=== PATIENT | female | born 1995 | race African-American/Black ===

== ENCOUNTER 2018-01-31 12:25 | Emergency (ER) | payer MEDICAID ==
[~2018-01-31] VITALS: Ht 172.7 cm; Wt 98.0 kg
[2018-01-31] MEDS ORDERED: SODIUM CHLORIDE 0.9% 1,000 ML IV ONE (13:28)
[2018-01-31 14:34] LABS: BASOPHILS % 0.7 % (0.0-2.0); EOSINOPHILS % 1.1 % (0.0-5.0); HEMATOCRIT. 37.3 % (36.0-48.0); HEMOGLOBIN. 12.2 g/dL (12.0-16.0); LYMPHOCYTES % 23.1 % (20.0-50.0); MEAN CORPUSCULAR HEMOGLOBIN 29.8 pg (28.0-32.0); MEAN PLATELET VOLUME 8.3 fl (7.4-10.4); MONOCYTES % 8.2 % (2.0-8.0); NEUTROPHILS % 66.9 % (40.0-76.0); PLATELET 207 x1000/uL (130-400); RED CELL DISTRIBUTION WIDTH 13.8 % (11.6-14.6)
[2018-01-31 14:37] LABS: CHLORIDE 108 mEq/L (98-107)
[2018-01-31 14:39] LABS: PARTIAL THROMBOPLASTIN TIME 28.9 sec (23.4-31.0); PROTHROMBIN TIME 10.3 sec (9.1-11.1)
[2018-01-31 14:48] LABS: B-HCG QUANTITATIVE < 1 mIU/mL (<3)
[2018-01-31 15:04] LABS: KETONES URINE NEGATIVE (NEGATIVE); LEUKOCYTE ESTERASE URINE 1+ (NEGATIVE); NITRITE URINE NEGATIVE (NEGATIVE); OCCULT BLOOD URINE 3+ (NEGATIVE); PH URINE 7.5 (4.5-8.0); PROTEIN URINE TRACE (NEGATIVE); SPECIFIC GRAVITY URINE 1.025 (1.005-1.030); UROBILINOGEN URINE 0.2 E.U./dL (0.2-1.0)
[2018-01-31 15:12] LABS: CLARITY URINE CLOUDY (CLEAR); COLOR URINE BLOODY (YELLOW)
[2018-01-31 15:15] LABS: *AMPHETAMINES SCREEN URINE NEGATIVE (NEGATIVE); *BARBITURATES SCREEN URINE NEGATIVE (NEGATIVE); *BENZODIAZEPINES SCREEN URINE NEGATIVE (NEGATIVE); *COCAINE SCREEN URINE NEGATIVE (NEGATIVE); PHENCYCLIDINE URINE SCREEN NEGATIVE (NEGATIVE)
[2018-01-31 15:16] LABS: METHADONE URINE SCREEN NEGATIVE (NEGATIVE); OPIATES URINE SCREEN NEGATIVE (NEGATIVE)
[2018-01-31 15:25] LABS: CANNABINOID URINE SCREEN PRESUMTIVE POSITIVE (NEGATIVE)
[2018-01-31] MEDS ORDERED: CEFAZOLIN 1000MG PREMIX 50 ML IV ONE (16:15)
[2018-01-31] MEDS ORDERED: KETOROLAC 30MG/ML VIAL IV ONE (17:30)
[2018-01-31 18:11] VITALS: BP 120/71
== END 2018-01-31 18:13 | disposition home or self-care (01) ==
LOC: ER 12:25
DX: N39.0 Urinary tract infection, site not specified (principal); J45.909 Unspecified asthma, uncomplicated; F12.10 Cannabis abuse, uncomplicated; F17.200 Nicotine dependence, unspecified, uncomplicated
CPT/HCPCS: 36415; 76830; 76856; 80048; 80305; 81003; 81025; 84702; 85025; 85610; 85730; 86850; 86900; 86901; 87077; 87086; 87186; 96361; 96365; 96375; 99285; J0690; J1885; J7030

== ENCOUNTER 2018-06-30 14:01 | Emergency (ER) | payer MEDICAID ==
[~2018-06-30] VITALS: Ht 175.3 cm; Wt 100.0 kg
[2018-06-30] MEDS ORDERED: SODIUM CHLORIDE 0.9% 1,000 ML IV ONE (22:41)
[2018-06-30 23:21] LABS: CLARITY URINE TURBID (CLEAR); KETONES URINE 2+ (NEGATIVE); LEUKOCYTE ESTERASE URINE 3+ (NEGATIVE); NITRITE URINE POSITIVE (NEGATIVE); OCCULT BLOOD URINE 3+ (NEGATIVE); PROTEIN URINE 3+ (NEGATIVE); SPECIFIC GRAVITY URINE 1.034 (1.005-1.030)
[2018-06-30 23:22] LABS: COLOR URINE BLOODY (YELLOW)
[2018-06-30 23:45] LABS: BASOPHILS % 0.6 % (0.0-2.0); EOSINOPHILS % 1.8 % (0.0-5.0); HEMATOCRIT. 34.9 % (36.0-48.0); HEMOGLOBIN. 11.4 g/dL (12.0-16.0); LYMPHOCYTES % 35.4 % (20.0-50.0); MEAN CORPUSCULAR VOLUME 88.8 fL (81.0-99.0); MEAN PLATELET VOLUME 8.2 fl (7.4-10.4); MONOCYTES % 10.9 % (2.0-8.0); NEUTROPHILS % 51.3 % (40.0-76.0); PLATELET 254 x1000/uL (130-400); RED BLOOD CELL COUNT 3.93 mill/uL (4.2-5.4); RED CELL DISTRIBUTION WIDTH 13.5 % (11.6-14.6)
[2018-06-30 23:54] LABS: CHLORIDE 108 mEq/L (98-107)
[2018-07-01] MEDS ORDERED: MORPHINE SULFATE 4 MG/ML CPJ (NOT FOR IM USE) IV ONE (00:45)
[2018-07-01 01:02] VITALS: BP 112/55
== END 2018-07-01 01:46 | disposition home or self-care (01) ==
LOC: ER 16:21
DX: D25.0 Submucous leiomyoma of uterus (principal); N93.8 Other specified abnormal uterine and vaginal bleeding; N39.0 Urinary tract infection, site not specified; J45.909 Unspecified asthma, uncomplicated
CPT/HCPCS: 36415; 76705; 76830; 76856; 80053; 81003; 81025; 85025; 86850; 86900; 86901; 96361; 96374; 99284; J2270; J7030; Z7610

== ENCOUNTER 2019-04-12 13:17 | Emergency (ER) | payer MEDICAID, OTHER ==
[~2019-04-12] VITALS: Ht 177.8 cm; Wt 99.0 kg
[2019-04-12 13:38] VITALS: BP 119/67
== END 2019-04-12 16:00 | disposition left against medical advice (07) ==
LOC: ER 13:17
DX: Z53.21 Procedure and treatment not carried out due to patient leaving prior to being seen by health care provider (principal); F17.200 Nicotine dependence, unspecified, uncomplicated

== ENCOUNTER 2021-04-17 21:17 | Emergency (ER) | payer OTHER ==
[~2021-04-17] VITALS: Ht 175.3 cm; Wt 99.0 kg
[2021-04-17] MEDS ORDERED: SODIUM CHLORIDE 0.9% 1,000 ML IV ONE (22:45)
[2021-04-17 23:53] LABS: BASOPHILS % 0.4 % (0.0-2.0); EOSINOPHILS % 0.7 % (0.0-5.0); HEMATOCRIT. 38.4 % (36.0-48.0); HEMOGLOBIN. 12.6 g/dL (12.0-16.0); LYMPHOCYTES % 31.5 % (20.0-50.0); MEAN CORPUSCULAR VOLUME 88.6 fL (81.0-99.0); MEAN PLATELET VOLUME 7.4 fl (7.4-10.4); NEUTROPHILS % 60.4 % (40.0-76.0); PLATELET 232 x1000/uL (130-400); RED BLOOD CELL COUNT 4.34 mill/uL (4.2-5.4); RED CELL DISTRIBUTION WIDTH 14.4 % (11.6-14.6)
[2021-04-18 00:01] LABS: CHLORIDE 110 mEq/L (98-107)
[2021-04-18] MEDS ORDERED: MORPHINE SULFATE 2 MG/ML CPJ (NOT FOR IM USE) IV NR (01:00)
[2021-04-18] MEDS ORDERED: IOHEXOL-300 100 ML BOTTLE ONE (02:18)
[2021-04-18] MEDS ORDERED: IBUP-2029 MT (03:26)
[2021-04-18 04:00] VITALS: BP 114/74
== END 2021-04-18 04:20 | disposition home or self-care (01) ==
LOC: ER 21:17
DX: S30.1XXA Contusion of abdominal wall, initial encounter (principal); J45.909 Unspecified asthma, uncomplicated; F12.10 Cannabis abuse, uncomplicated; V43.52XA Car driver injured in collision with other type car in traffic accident, initial encounter; Y93.89 Activity, other specified; Y92.488 Other paved roadways as the place of occurrence of the external cause
CPT/HCPCS: 36415; 71045; 74177; 80053; 81025; 85025; 86850; 86900; 86901; 96361; 96374; 99285; J2270; J7030; Q9967; Z7610

== ENCOUNTER 2023-07-09 15:43 | Emergency (ER) | payer MEDICAID, OTHER ==
[~2023-07-09] VITALS: Ht 175.3 cm; Wt 120.2 kg
[~2023-07-09 15:43] MED LIST: IBUP-2029 MT
[2023-07-09 16:08] VITALS: O2SAT 100
[2023-07-09] MEDS: ONDANSETRON 4MG ODT PO ONE (17:49)
[2023-07-09] MEDS ORDERED: ONDA4TAB11 PO (17:50)
[2023-07-09 19:12] LABS: HCG SCREEN NEGATIVE
[2023-07-09 19:35] VITALS: BP 129/77; PULSE 87; RESP 18; TEMP 98.2
== END 2023-07-09 19:37 | disposition home or self-care (01) ==
LOC: ER 15:43
DX: R11.2 Nausea with vomiting, unspecified (principal); J45.909 Unspecified asthma, uncomplicated; F12.10 Cannabis abuse, uncomplicated
CPT/HCPCS: 99283; 84703; Q0162

== ENCOUNTER 2025-03-01 00:38 | Emergency (ER) | payer MEDICAID ==
[~2025-03-01] VITALS: Ht 172.7 cm; Wt 159.0 kg
[~2025-03-01 00:38] MED LIST changes: +GABA-1180 PO; -IBUP-2029 MT; +LEVO-65 MT
[2025-03-01 00:46] VITALS: BP 156/84; PULSE 90; RESP 18; TEMP 36.9; O2SAT 97
[2025-03-01] MEDS: KETOROLAC 30MG/ML VIAL IM ONE (01:34)
[2025-03-01 01:42] LABS: BASOPHILS % 0.3 % (0.0-2.0); EOSINOPHILS % 0.1 % (0.0-5.0); HEMATOCRIT. 37.9 % (36.0-48.0); HEMOGLOBIN. 12.2 g/dL (12.0-16.0); LYMPHOCYTES % 11.1 % (20.0-50.0); MEAN PLATELET VOLUME 7.7 fl (7.4-10.4); MONOCYTES % 7.1 % (2.0-8.0); NEUTROPHILS % 81.4 % (40.0-76.0); PLATELET 263 x1000/uL (130-400); RED BLOOD CELL COUNT 4.17 mill/uL (4.2-5.4); RED CELL DISTRIBUTION WIDTH 13.6 % (11.6-14.6)
[2025-03-01 01:59] LABS: CREATININE 1.0 mg/dL (0.6-1.0); UREA NITROGEN BLOOD 9 mg/dL (9-23)
[2025-03-01 02:01] LABS: ASPARTATE AMINOTRANSFERASE 17 IU/L (<34); BILIRUBIN DIRECT 0.4 mg/dL (<=3.0); BILIRUBIN TOTAL 1.0 mg/dL (0.1-1.0); PROTEIN TOTAL 7.0 g/dL (6.0-8.3)
[2025-03-01 02:03] LABS: CLARITY URINE CLEAR (CLEAR); COLOR URINE YELLOW (YELLOW); GLUCOSE URINE NEGATIVE (NEGATIVE); KETONES URINE NEGATIVE (NEGATIVE); LEUKOCYTE ESTERASE URINE NEGATIVE (NEGATIVE); NITRITE URINE NEGATIVE (NEGATIVE); OCCULT BLOOD URINE 3+ (NEGATIVE); PH URINE 5.5 (4.5-8.0); PROTEIN URINE NEGATIVE (NEGATIVE); SPECIFIC GRAVITY URINE 1.006 (1.005-1.030); UROBILINOGEN URINE 0.2 E.U./dL (0.2-1.0)
[2025-03-01] MEDS ORDERED: CEFTRIAXONE SODIUM 500MG VIAL IM ONE (02:45)
[2025-03-01] MEDS ORDERED: DOXYCYCLINE HYCLATE 100MG CAPSULE PO ONE (02:45)
[2025-03-01 03:19] LABS: SQUAMOUS EPITHELIAL CELL URINE FEW /lpf (RARE/1+); WBC URINE 0-2 /hpf (0-2)
[2025-03-01 03:21] LABS: BACTERIA URINE NONE SEEN
[2025-03-01] MEDS ORDERED: GABA-1180 MT (05:10)
[2025-03-01] MEDS ORDERED: DOXY-461 MT (05:10)
== END 2025-03-01 02:37 | disposition left against medical advice (07) ==
LOC: ER 00:38
DX: R10.84 Generalized abdominal pain (principal); R30.0 Dysuria; J45.909 Unspecified asthma, uncomplicated; Z79.899 Other long term (current) drug therapy
CPT/HCPCS: 99283; 80076; 80048; 81003; 81025; 83690; 85025; 36415; 96372; J1885

== ENCOUNTER 2025-03-01 04:52 | Emergency (ER) | payer MEDICAID ==
[~2025-03-01] VITALS: Ht 175.3 cm; Wt 155.0 kg
[2025-03-01 04:54] VITALS: BP 146/82; PULSE 94; RESP 18; TEMP 36.8; O2SAT 96
[2025-03-01] MEDS ORDERED: DOXY-461 MT (05:10)
[2025-03-01] MEDS ORDERED: GABA-1180 MT (05:10)
[2025-03-01] MEDS: CEFTRIAXONE SODIUM 500MG VIAL IM ONE (05:25)
[2025-03-01] MEDS: DOXYCYCLINE HYCLATE 100MG CAPSULE PO ONE (05:25)
[2025-03-01] MEDS: ACETAMINOPHEN 500MG TABLET PO ONE (05:25)
== END 2025-03-01 05:40 | disposition home or self-care (01) ==
LOC: ER 04:52
DX: G89.29 Other chronic pain (principal); M54.50 Low back pain, unspecified; R30.0 Dysuria; J45.909 Unspecified asthma, uncomplicated; F41.9 Anxiety disorder, unspecified; F12.90 Cannabis use, unspecified, uncomplicated; Z79.899 Other long term (current) drug therapy
CPT/HCPCS: 99283; 96372; J0696

== ENCOUNTER 2025-03-01 07:33 | Emergency (ER) | payer MEDICAID ==
[~2025-03-01] VITALS: Ht 175.3 cm; Wt 145.0 kg
[~2025-03-01 07:33] MED LIST changes: +DOXY-461 MT; +GABA-1180 MT
[2025-03-01 07:36] VITALS: BP 144/77; PULSE 97; RESP 16; TEMP 36.7; O2SAT 100
[2025-03-01] MEDS: ACETAMINOPHEN 325MG TABLET PO ONE (08:02)
== END 2025-03-01 08:16 | disposition home or self-care (01) ==
LOC: ER 07:45
DX: M79.604 Pain in right leg (principal); M79.605 Pain in left leg; F12.90 Cannabis use, unspecified, uncomplicated; F20.9 Schizophrenia, unspecified; F31.9 Bipolar disorder, unspecified; J45.909 Unspecified asthma, uncomplicated; Z79.899 Other long term (current) drug therapy
CPT/HCPCS: 99283

== ENCOUNTER 2025-03-21 00:11 | Emergency (ER) | payer MEDICAID ==
[~2025-03-21] VITALS: Ht 172.7 cm; Wt 156.0 kg
[2025-03-21 00:22] VITALS: O2SAT 100
[2025-03-21 01:26] LABS: CLARITY URINE CLOUDY (CLEAR); COLOR URINE ORANGE (YELLOW); GLUCOSE URINE NEGATIVE (NEGATIVE); KETONES URINE NEGATIVE (NEGATIVE); LEUKOCYTE ESTERASE URINE TRACE (NEGATIVE); NITRITE URINE NEGATIVE (NEGATIVE); OCCULT BLOOD URINE 3+ (NEGATIVE); PH URINE 5.5 (4.5-8.0); PROTEIN URINE 1+ (NEGATIVE); SPECIFIC GRAVITY URINE 1.014 (1.005-1.030); UROBILINOGEN URINE 0.2 E.U./dL (0.2-1.0)
[2025-03-21] MEDS: ACETAMINOPHEN 325MG TABLET PO ONE ×2 (01:52→05:21)
[2025-03-21 01:58] LABS: BASOPHILS % 0.9 % (0.0-2.0); EOSINOPHILS % 0.3 % (0.0-5.0); HEMATOCRIT. 34.5 % (36.0-48.0); HEMOGLOBIN. 11.2 g/dL (12.0-16.0); LYMPHOCYTES % 23.6 % (20.0-50.0); MEAN PLATELET VOLUME 7.4 fl (7.4-10.4); MONOCYTES % 10.9 % (2.0-8.0); NEUTROPHILS % 64.3 % (40.0-76.0); PLATELET 208 x1000/uL (130-400); RED BLOOD CELL COUNT 3.83 mill/uL (4.2-5.4); RED CELL DISTRIBUTION WIDTH 13.8 % (11.6-14.6)
[2025-03-21 02:13] LABS: CREATININE 0.9 mg/dL (0.6-1.0); UREA NITROGEN BLOOD 9 mg/dL (9-23)
[2025-03-21 02:15] LABS: B-HCG QUANTITATIVE < 1 mIU/mL (<6)
[2025-03-21 03:31] LABS: HCG SCREEN NEGATIVE
[2025-03-21 05:14] VITALS: BP 123/65; PULSE 80; RESP 15; TEMP 36.7; O2SAT 100
[2025-03-21 05:44] LABS: SQUAMOUS EPITHELIAL CELL URINE FEW /lpf (RARE/1+)
[2025-03-21 05:46] LABS: RBC URINE TNTC /hpf (0-2); WBC URINE 0-2 /hpf (0-2)
[2025-03-21 05:47] LABS: BACTERIA URINE NONE SEEN
== END 2025-03-21 05:27 | disposition home or self-care (01) ==
LOC: ER 00:11
DX: N93.9 Abnormal uterine and vaginal bleeding, unspecified (principal); F31.9 Bipolar disorder, unspecified; F41.9 Anxiety disorder, unspecified; J45.909 Unspecified asthma, uncomplicated; R10.20 Pelvic and perineal pain unspecified side; Z59.01 Sheltered homelessness; Z79.899 Other long term (current) drug therapy
CPT/HCPCS: 36415; 73630; 80048; 81003; 81025; 84702; 84703; 85025; 86850; 86900; 93005; 99285

== ENCOUNTER 2025-03-21 08:21 | Emergency (ER) | payer MEDICAID ==
[~2025-03-21] VITALS: Ht 165.1 cm; Wt 82.0 kg
[2025-03-21 08:25] VITALS: BP 141/90; PULSE 110; RESP 15; TEMP 98.2; O2SAT 99
== END 2025-03-21 08:39 | disposition left against medical advice (07) ==
LOC: ER 08:21
DX: Z00.00 Encounter for general adult medical examination without abnormal findings (principal); F31.9 Bipolar disorder, unspecified; D64.9 Anemia, unspecified; J45.909 Unspecified asthma, uncomplicated; Z79.899 Other long term (current) drug therapy
CPT/HCPCS: 99283

== ENCOUNTER 2025-03-31 23:57 | Emergency (ER) | payer MEDICAID ==
[~2025-03-31] VITALS: Ht 170.2 cm; Wt 136.0 kg
[2025-04-01 00:02] VITALS: BP 169/89; PULSE 122; RESP 20; O2SAT 99
[2025-04-01] MEDS ORDERED: GABAPENTIN 400MG CAPSULE PO ONE (01:45)
[2025-04-01 01:56] LABS: CLARITY URINE CLEAR (CLEAR); COLOR URINE YELLOW (YELLOW); GLUCOSE URINE NEGATIVE (NEGATIVE); KETONES URINE NEGATIVE (NEGATIVE); LEUKOCYTE ESTERASE URINE NEGATIVE (NEGATIVE); NITRITE URINE NEGATIVE (NEGATIVE); OCCULT BLOOD URINE NEGATIVE (NEGATIVE); PH URINE 6.0 (4.5-8.0); PROTEIN URINE NEGATIVE (NEGATIVE); SPECIFIC GRAVITY URINE 1.004 (1.005-1.030); UROBILINOGEN URINE 0.2 E.U./dL (0.2-1.0)
[2025-04-01 02:11] LABS: BASOPHILS % 0.5 % (0.0-2.0); EOSINOPHILS % 0.3 % (0.0-5.0); HEMATOCRIT. 36.7 % (36.0-48.0); HEMOGLOBIN. 11.9 g/dL (12.0-16.0); LYMPHOCYTES % 17.1 % (20.0-50.0); MEAN PLATELET VOLUME 7.5 fl (7.4-10.4); MONOCYTES % 9.6 % (2.0-8.0); NEUTROPHILS % 72.5 % (40.0-76.0); PLATELET 237 x1000/uL (130-400); RED BLOOD CELL COUNT 4.06 mill/uL (4.2-5.4); RED CELL DISTRIBUTION WIDTH 14.0 % (11.6-14.6)
[2025-04-01 02:13] VITALS: TEMP 99.1
[2025-04-01] MEDS: ONDANSETRON 4MG ODT PO ONE (02:13)
[2025-04-01] MEDS: ACETAMINOPHEN 500MG TABLET PO ONE (02:13)
[2025-04-01] MEDS: GABAPENTIN 400MG CAPSULE PO NR (02:13)
[2025-04-01] MEDS: FAMOTIDINE 20MG TABLET PO ONE (02:13)
[2025-04-01 02:16] LABS: HCG SCREEN NEGATIVE
[2025-04-01 02:17] LABS: CREATININE 0.7 mg/dL (0.6-1.0); UREA NITROGEN BLOOD 6 mg/dL (9-23)
[2025-04-01 02:19] LABS: ASPARTATE AMINOTRANSFERASE 18 IU/L (<34); BILIRUBIN DIRECT 0.3 mg/dL (<=3.0); BILIRUBIN TOTAL 0.7 mg/dL (0.1-1.0)
[2025-04-01 02:20] LABS: PROTEIN TOTAL 6.5 g/dL (6.0-8.3)
[2025-04-01] MEDS ORDERED: FERR15DR MT (04:10)
[2025-04-01] MEDS ORDERED: IBUP-1455 MT (04:10)
[2025-04-01] MEDS ORDERED: GABA-1180 MT (04:10)
== END 2025-04-01 04:20 | disposition home or self-care (01) ==
LOC: ER 23:57
DX: R10.30 Lower abdominal pain, unspecified (principal); D64.9 Anemia, unspecified; M54.50 Low back pain, unspecified; F31.9 Bipolar disorder, unspecified; J45.909 Unspecified asthma, uncomplicated; F41.9 Anxiety disorder, unspecified; Z79.899 Other long term (current) drug therapy
CPT/HCPCS: 99284; 81025; 74176; 76705; 80076; 80048; 81003; 84703; 85025; 36415; 93005; Q0162

== ENCOUNTER 2025-04-06 19:08 | Emergency (ER) | payer MEDICAID ==
[~2025-04-06] VITALS: Ht 167.6 cm; Wt 136.0 kg
[~2025-04-06 19:08] MED LIST changes: +FERR15DR MT; +IBUP-1455 MT
[2025-04-06 19:09] VITALS: BP 140/87; PULSE 95; RESP 16; TEMP 98.2; O2SAT 100
== END 2025-04-06 19:50 | disposition home or self-care (01) ==
LOC: ER 19:08
DX: Z00.00 Encounter for general adult medical examination without abnormal findings (principal); F10.129 Alcohol abuse with intoxication, unspecified; F31.9 Bipolar disorder, unspecified; F12.90 Cannabis use, unspecified, uncomplicated; J45.909 Unspecified asthma, uncomplicated; Z79.899 Other long term (current) drug therapy; Y90.9 Presence of alcohol in blood, level not specified
CPT/HCPCS: 99283

== ENCOUNTER 2025-04-26 16:36 | Emergency (ER) | payer MEDICAID ==
[~2025-04-26] VITALS: Ht 177.8 cm; Wt 146.5 kg
[2025-04-26 16:40] VITALS: BP 131/90; PULSE 100; RESP 16; TEMP 98.5; O2SAT 98
[2025-04-26 17:29] LABS: CLARITY URINE CLEAR (CLEAR); COLOR URINE YELLOW (YELLOW); GLUCOSE URINE NEGATIVE (NEGATIVE); KETONES URINE NEGATIVE (NEGATIVE); LEUKOCYTE ESTERASE URINE NEGATIVE (NEGATIVE); NITRITE URINE NEGATIVE (NEGATIVE); OCCULT BLOOD URINE NEGATIVE (NEGATIVE); PH URINE 7.0 (4.5-8.0); PROTEIN URINE NEGATIVE (NEGATIVE); SPECIFIC GRAVITY URINE 1.011 (1.005-1.030); UROBILINOGEN URINE 0.2 E.U./dL (0.2-1.0)
[2025-04-26 17:50] LABS: BASOPHILS % 0.5 % (0.0-2.0); EOSINOPHILS % 0.2 % (0.0-5.0); HEMATOCRIT. 33.5 % (36.0-48.0); HEMOGLOBIN. 10.8 g/dL (12.0-16.0); LYMPHOCYTES % 16.8 % (20.0-50.0); MEAN PLATELET VOLUME 7.6 fl (7.4-10.4); MONOCYTES % 10.7 % (2.0-8.0); NEUTROPHILS % 71.8 % (40.0-76.0); PLATELET 272 x1000/uL (130-400); RED BLOOD CELL COUNT 3.72 mill/uL (4.2-5.4); RED CELL DISTRIBUTION WIDTH 14.1 % (11.6-14.6)
[2025-04-26 17:59] LABS: CREATININE 0.7 mg/dL (0.6-1.0); UREA NITROGEN BLOOD 8 mg/dL (9-23)
== END 2025-04-26 19:20 | disposition left against medical advice (07) ==
LOC: ER 16:36
DX: M79.89 Other specified soft tissue disorders (principal); R06.02 Shortness of breath; I10 Essential (primary) hypertension; F41.9 Anxiety disorder, unspecified; F31.9 Bipolar disorder, unspecified; J45.909 Unspecified asthma, uncomplicated; Z79.899 Other long term (current) drug therapy
CPT/HCPCS: 36415; 80048; 81003; 81025; 83880; 85025; 85379; 99283

== ENCOUNTER 2025-05-05 20:12 | Emergency (ER) | payer MEDICAID ==
[~2025-05-05] VITALS: Ht 165.1 cm; Wt 129.0 kg
[2025-05-05 20:28] VITALS: O2SAT 98
[2025-05-05] MEDS: GABAPENTIN 100MG CAPSULE PO ONE (22:42)
[2025-05-05] MEDS ORDERED: GABA-1180 MT (23:17)
[2025-05-05 23:30] VITALS: BP 104/82; PULSE 89; RESP 14; TEMP 37.1; O2SAT 95
== END 2025-05-05 23:32 | disposition home or self-care (01) ==
LOC: ER 20:12
DX: G89.29 Other chronic pain (principal); M54.9 Dorsalgia, unspecified; F12.90 Cannabis use, unspecified, uncomplicated; F31.9 Bipolar disorder, unspecified; I10 Essential (primary) hypertension; Z76.0 Encounter for issue of repeat prescription; Z79.899 Other long term (current) drug therapy; Z91.148 Patient's other noncompliance with medication regimen for other reason
CPT/HCPCS: 99283

== ENCOUNTER 2025-05-06 01:50 | Emergency (ER) | payer MEDICAID ==
[~2025-05-06] VITALS: Ht 177.8 cm; Wt 152.0 kg
[2025-05-06 01:58] VITALS: O2SAT 98
[2025-05-06 03:06] LABS: BASOPHILS % 0.4 % (0.0-2.0); EOSINOPHILS % 0.6 % (0.0-5.0); HEMATOCRIT. 35.4 % (36.0-48.0); HEMOGLOBIN. 11.4 g/dL (12.0-16.0); LYMPHOCYTES % 21.0 % (20.0-50.0); MEAN PLATELET VOLUME 7.1 fl (7.4-10.4); MONOCYTES % 11.5 % (2.0-8.0); NEUTROPHILS % 66.5 % (40.0-76.0); PLATELET 306 x1000/uL (130-400); RED BLOOD CELL COUNT 3.95 mill/uL (4.2-5.4); RED CELL DISTRIBUTION WIDTH 14.2 % (11.6-14.6)
[2025-05-06 03:16] LABS: HCG SCREEN NEGATIVE
[2025-05-06 03:17] LABS: CREATININE 0.9 mg/dL (0.6-1.0); UREA NITROGEN BLOOD 13 mg/dL (9-23)
[2025-05-06 03:18] LABS: PROTEIN TOTAL 6.8 g/dL (6.0-8.3)
[2025-05-06 03:19] LABS: ASPARTATE AMINOTRANSFERASE 15 IU/L (<34); BILIRUBIN DIRECT 0.2 mg/dL (<=3.0); BILIRUBIN TOTAL 0.5 mg/dL (0.1-1.0)
[2025-05-06] MEDS: ACETAMINOPHEN 325MG TABLET PO ONE (03:34)
[2025-05-06 04:56] VITALS: BP 118/77; PULSE 93; RESP 14; TEMP 37.1; O2SAT 98
== END 2025-05-06 05:01 | disposition home or self-care (01) ==
LOC: ER 01:50
DX: M79.10 Myalgia, unspecified site (principal); I10 Essential (primary) hypertension; F31.9 Bipolar disorder, unspecified; Z79.899 Other long term (current) drug therapy
CPT/HCPCS: 36415; 80048; 80076; 84703; 85025; 99283